=== PATIENT | female | born 2000 ===

== ENCOUNTER → 2022-09-07 | Outpatient (REF) | payer OTHER, MEDICARE | LOC: M LAB REF 18:47 | PROVIDERS: ATTEND Physician Assistant | DX: R30.0 Dysuria (principal) ==

== ENCOUNTER → 2022-09-20 | Outpatient (REF) | payer OTHER, MEDICARE | LOC: M LAB REF 16:22 | PROVIDERS: ATTEND Student in an Organized Health Care Education/Training Program | DX: R30.0 Dysuria (principal) ==